=== PATIENT | female | born 1955 | race Asian ===

== ENCOUNTER 2025-01-15 10:32 | Outpatient (REF) | payer MEDICAID, SELFPAY ==
--- NOTE | 2025-01-15 13:56 | MHC.AU.HA1 ---
Hearing Aid Evaluation Date of Visit: 01/15/25 Chief I Dispatcher Used: Daughter interpreted Historical Information: Description of Hearing: Right ear: moderate severe to severe sensorineural hearing loss Left ear: profound sensorineural hearing loss Current personal amplification information, if applicable: Summary: Zeny is here for evaluation with her daughter who helped interpret and provide history. She states her mother had her hearing tested at [facility] about 6 months ago but did not receive a hearing aid. She states she and her mother are extremely anxious to get a hearing aid as her hearing loss is causing significant challenges in communication for them at home as well as in public, as Zeny is not able to go anywhere by herself because she cannot hear. Testing shows asymmetric hearing loss. Daughter states she has not seen ENT, does not know if she was referred. Discussed medical clearance. Per deni Obando to receive medical clearance from PCP with recommendation for ENT consultation. Daughter is understanding. Discussed options for amplification, selected Phonak Abril L70 SP in chestnut. Impression taken for earmold without incident. Will request medical clearance with note regarding ENT referral. Hearing Aid Prescription: Based on the individual?s shared listening needs, communication environments, dexterity, desire for connectivity, and personal preferences, the following prescription for amplification has been made: Right ear: Make, Model, Color: Phonak Abril L70 SP Battery Size: 13 Psychological Assistant/Slim Tube: Type of Earmold/Dome/CShell/SlimTip: skeleton Action Taken/Action Needed: Earmold Impressions Taken Medical Clearance to be requested from PCP/ENT Hearing Instrument Fitting to be scheduled when materials arrive Primary Diagnosis: H90.3 Bilateral Sensorineural Hearing Loss Signature: Provider: Daya Mendes, [facility]
--- NOTE | 2025-01-15 13:57 | MHC.AU.MED ---
Medical Clearance for Hearing Instrumentation Date: 01/15/25 Patient Name: Zeny Lanier Date of : 1955 Primary Care Provider: Referring Provider: Renetta Berger PA-C We have seen your patient on 01/15/25 and have determined that they are a candidate for amplification (See accompanying report). Specifically, they would benefit from: Hearing aid use in the right ear There is a statute that addresses Medical Evaluation Requirements prior to fitting a patient with a hearing aid. According to [place] statute 265 CMR:6.03(1), (a) General. Except as provided in 265 CMR 6.03(1)(b), a special effects technician shall not sell a hearing aid unless the prospective user has presented to the special effects technician a written statement signed by a licensed physician that states that the patient's hearing loss has been medically evaluated and the patient may be considered a candidate for a hearing aid. The medical evaluation must have taken place within the preceding six months. Please note: Due to the [place] Statute referenced above, we cannot accept a signature other than that of a licensed physician. REHAB OFFICE COORDINATOR and PA signatures cannot be accepted. I am in agreement with the above recommendation. There is no medical contraindication for hearing instrumentation. Physician Signature Date Physician Name (Printed)
== END 2025-01-15 10:33 | disposition home or self-care (01) ==
LOC: HO.SH 10:32
PROVIDERS: Visit Provider Physician Assistant Medical
DX: Z01.118 Encounter for examination of ears and hearing with other abnormal findings (principal); Z46.1 Encounter for fitting and adjustment of hearing aid; H90.3 Sensorineural hearing loss, bilateral
CPT/HCPCS: 92553; 92590; V5275

== ENCOUNTER 2025-02-08 10:24 | Outpatient (REF) | payer MEDICAID, SELFPAY | END 2025-02-08 10:25 | disposition home or self-care (01) | LOC: HO.HAP 10:24 | PROVIDERS: PCP Physician Assistant Medical; Visit Provider Family Medicine | DX: Z46.1 Encounter for fitting and adjustment of hearing aid (principal); H90.3 Sensorineural hearing loss, bilateral | CPT/HCPCS: V5011; V5020; V5241; V5257; V5264; V5266 ==

== ENCOUNTER 2025-03-02 13:02 | Outpatient (REF) | payer MEDICAID, SELFPAY ==
--- NOTE | 2025-03-02 13:31 | MHC.AU.HA3 ---
Hearing Instrument Follow-Up- Binaural Date of Visit: 03/02/25 Right Ear: Make, Model, Color, Serial Number: Maryanaak Abril L70 SP Laxmi Gibbs#[id number] Drywall Hanger Helper Repair Warranty: 02/17/2028 Drywall Hanger Helper Loss and Damage Warranty: 02/17/2028 [facility] Service Plan: 02/08/2026 Battery Size: 13 Earmold/Dome/CShell/SlimTip:shell Dispensed By: [facility] Date of Fittin02/08/2025 Follow-Up Summary: Seen for follow up, accompanied by daughter. Reports that the hearing aid is not working. Reports it after a couple days. Reports they have not tried a new battery. Reports they need to be shown how to change battery. Reviewed battery change procedure. Listening check positive with new battery. Discussed battery lifespan. Advised of importance of opening battery compartment when hearing aid is not in use. Recommendations: Recommendations: Hearing instrument follow-up or maintenance as needed. Please contact our clinic with any questions or concerns. Diagnosis Code(s): Primary Diagnosis: H90.3 Bilateral Sensorineural Hearing Loss Signature: Provider: Jose Husain, [facility]
== END 2025-03-02 13:03 | disposition home or self-care (01) ==
LOC: HO.HAP 13:02
PROVIDERS: Visit Provider Physician Assistant Medical
DX: Z13.89 Encounter for screening for other disorder (principal)